=== PATIENT | male | born 1970 | race American Indian/Alaskan Native ===

== ENCOUNTER 2020-12-01 02:47 | Emergency (ER) | payer OTHER ==
[2020-12-01 02:57] VITALS: BP 130/93
[2020-12-01] MEDS ORDERED: predniSONE 20 MG TAB PO ONE (03:36)
--- NOTE | 2020-12-01 04:14 | Emergency Department Report ---
ED General Adult HPI - General Chief complaint: Adult Asthma Stated complaint: ASTHMA Source: patient Mode of arrival: Ambulatory Limitations: No Limitations - History of Present Illness Initial comments: Patient is a 50-year-old -[place] male with a history of sarcoidosis, prostate cancer s/p radiation therapy and in remission and asthma who presents to the ED with complaint of shortness of breath, persistent dry cough and wheezing for the last 1 hour.. Patient states that he was asleep when the heating system in the house was on and that he woke up with shortness of breath and wheezing constantly. Patient states that he used his Combivent inhaler at home and it helped resolve the shortness of breath. Patient states that he came to the ED for refill of his Combivent inhaler which ran out after the treatment prior to arrival in the ED. Patient also complains of bilateral inguinal intermittent itchy dry scaly rashes for the last 3 months worse in the last 2 days. Patient denies dizziness, syncope, fever, chills, chest pain, abdominal pain, testicular pain, dysuria, urinary frequency and urgency, nausea and vomiting, sore throat, nasal and sinus congestion or headache. MD Complaint: Cough, wheezing, asthma flare -: Sudden, hour(s) (1) Location: chest Radiation: non-radiation Severity scale (0 -10): 1 Quality: dull Consistency: now resolved Improves with: medication (combivent inhaler) Worsens with: cold therapy, other (heating in the house) Associated Symptoms: denies other symptoms, cough, rash (bilateral inguinal itchy rash), shortness of breath. denies: confusion, chest pain, diaphoresis, fever/chills, headaches, loss of appetite, malaise, nausea/vomiting, seizure, syncope, weakness, other Treatments Prior to Arrival: none - Related Data Previous Rx's Medication Instructions Recorded Last Taken Type Combivent Respimat 1 puff IH QID #1 12/01/20 Unknown Rx Prednisone [predniSONE 10 mg 10 mg PO .TAPER #1 tab.ds.pk 12/01/20 Unknown Rx (6-Day Pack, 21 Tabs)] Terbinafine (Nf) [LamiSIL] 1 tab PO QDAY #21 tablet 12/01/20 Unknown Rx Allergies Allergy/AdvReac Type Severity Reaction Status Date / Time No Known Allergies Allergy Unverified 12/01/20 03:02 ED Review of Systems ROS: Stated complaint: ASTHMA Other details as noted in HPI Constitutional: denies: chills, fever Eyes: denies: eye pain, eye discharge, vision change ENT: congestion. denies: ear pain, throat pain Respiratory: cough, shortness of breath, wheezing Cardiovascular: denies: chest pain, palpitations Endocrine: no symptoms reported Gastrointestinal: denies: abdominal pain, nausea, diarrhea Genitourinary: denies: urgency, dysuria Musculoskeletal: denies: back pain, joint swelling, arthralgia Skin: rash (Bilateral inguinal dry scaly itchy rashes). denies: lesions Neurological: denies: headache, weakness, paresthesias Psychiatric: denies: anxiety, depression Hematological/Lymphatic: denies: easy bleeding, easy bruising ED Past Medical Hx - Past Medical History Previous Medical History?: Yes Hx of Cancer: Yes (Prostate (In remission)) Hx Asthma: Yes Additional medical history: Sacoidosis - Surgical History Past Surgical History?: No - Social History Smoking Status: Never Smoker Substance Use Type: Marijuana - Medications Home Medications: Home Medications Medication Instructions Recorded Confirmed Last Taken Type Combivent Respimat 1 puff IH QID #1 12/01/20 Unknown Rx Prednisone [predniSONE 10 mg 10 mg PO .TAPER #1 tab.ds.pk 12/01/20 Unknown Rx (6-Day Pack, 21 Tabs)] Terbinafine (Nf) [LamiSIL] 1 tab PO QDAY #21 tablet 12/01/20 Unknown Rx ED Physical Exam - General Limitations: No Limitations General appearance: alert, in no apparent distress - Head Head exam: Present: atraumatic, normocephalic, normal inspection - Eye Eye exam: Present: normal appearance, PERRL, EOMI - ENT ENT exam: Present: normal exam, normal orophraynx, mucous membranes moist, TM's normal bilaterally, normal external ear exam - Neck Neck exam: Present: normal inspection, full ROM - Respiratory Respiratory exam: Present: normal lung sounds bilaterally. Absent: respiratory distress, wheezes, rales, stridor, chest wall tenderness, accessory muscle use, decreased breath sounds, prolonged expiratory - Cardiovascular Cardiovascular Exam: Present: regular rate, normal rhythm, normal heart sounds. Absent: systolic murmur, diastolic murmur, rubs, gallop - GI/Abdominal GI/Abdominal exam: Present: soft, normal bowel sounds. Absent: distended, tenderness, guarding, hyperactive bowel sounds, hypoactive bowel sounds, organomegaly - Extremities Exam Extremities exam: Present: normal inspection, full ROM, normal capillary refill - Back Exam Back exam: Present: normal inspection, full ROM. Absent: tenderness, CVA tenderness (R), CVA tenderness (L), muscle spasm, paraspinal tenderness, vertebral tenderness - Neurological Exam Neurological exam: Present: alert, oriented X3, CN II-XII intact, normal gait, reflexes normal - Psychiatric Psychiatric exam: Present: normal affect, normal mood - Skin Skin exam: Present: warm, dry, intact, normal color. Absent: rash ED Course Vital Signs 12/01/20 02:50 Temperature 98.1 F Pulse Rate 89 Respiratory 16 Rate Blood Pressure 130/93 O2 Sat by Pulse 97 Oximetry ED Medical Decision Making - Medical Decision Making This is a 50-year-old -[place] male with a history of sarcoidosis, prostate cancer s/p radiation therapy and in remission and asthma who presents to the ED with complaint of shortness of breath, persistent dry cough and wheezing for the last 1 hour.. Patient states that he was asleep when the heating system in the house was on and that he woke up with shortness of breath and wheezing constantly. Patient states that he used his Combivent inhaler at home and it helped resolve the shortness of breath. Patient states that he came to the ED for refill of his Combivent inhaler which ran out after the treatment prior to arrival in the ED. Patient also complains of bilateral inguinal intermittent itchy dry scaly rashes for the last 3 months worse in the last 2 days. In the ED, patient is alert and oriented x3 and is not in distress. Patient felt better prior to arrival in the ED but had apparently come to the ED for medication refill. Patient was therefore given a refill on his Combivent and also given a prescription for tinea crura's. Patient was advised to follow- up with his primary care physician in 5 to 7 days for reevaluation. Patient was advised to return to the ED immediately if symptoms get worse. - Differential Diagnosis Asthma flare; bronchitis; URI Critical care attestation.: If time is entered above; I have spent that time in minutes in the direct care of this critically ill patient, excluding procedure time. ED Disposition Clinical Impression: Acute asthmatic bronchitis, Tinea cruris, Itching with irritation Acute asthma exacerbation Qualifiers: Asthma severity: mild Asthma persistence: intermittent Qualified Code(s): J45.21 - Mild intermittent asthma with (acute) exacerbation Disposition: TO HOME OR SELFCARE Is pt being admited?: No Does the pt Need Aspirin: No Condition: Stable Instructions: Cough, Adult, [id number], Asthma, Adult, [id number], Acute Bronchitis (ED) Additional Instructions: Take medication with food, drink plenty of fluids and follow-up with your [facility] physician in 5 to 7 days for reevaluation. Return to the ED immediately if symptoms get worse. Prescriptions: Combivent Respimat 1 puff IH QID #1 Terbinafine (Nf) [LamiSIL] 1 tab PO QDAY #21 tablet Prednisone [predniSONE 10 mg (6-Day Pack, 21 Tabs)] 10 mg PO .TAPER #1 tab.ds.pk Referrals: MARIELA TELLO MD [Staff Physician] - 3-5 Days Time of Disposition: 04:19 Print Language: HONG KONGER
== END 2020-12-01 04:45 | disposition home or self-care (01) ==
LOC: ED 02:47
DX: J45.901 Unspecified asthma with (acute) exacerbation (principal); B35.6 Tinea cruris; L29.9 Pruritus, unspecified; F12.10 Cannabis abuse, uncomplicated; Z79.899 Other long term (current) drug therapy
CPT/HCPCS: 99282; J7512

== ENCOUNTER 2020-12-26 00:06 | Emergency (ER) | payer OTHER ==
--- NOTE | 2020-12-26 01:32 | Emergency Department Report ---
ED General Adult HPI - General Stated complaint: RX REFILL/INHALER PUI?: No Time Seen by Provider: 12/26/20 01:28 Source: patient Mode of arrival: Ambulatory Limitations: No Limitations - History of Present Illness Initial comments: CC: albuterol refill HPI: This is a 50 yo male with hx of asthma who desires refill of albuterol MDI. Receives care at [facility]. No current complaints. Has had intermittent shortness of breath cough wheezing. He only needs refill. He has been unable to get refill at pharmacy. Pharmacy unable to contact PCP. Severity scale (0 -10): 0 Improves with: none Worsens with: none Associated Symptoms: denies other symptoms - Related Data Previous Rx's Medication Instructions Recorded Last Taken Type Albuterol Mdi (or & Nicu Only) 2 puff IH QID PRN #8.5 gram 12/01/20 Unknown Rx [ProAir HFA Inhaler] Combivent Respimat 1 puff IH QID #1 12/01/20 Unknown Rx Ipratropium (Nf) [Atrovent] 2 puff IH Q6HR PRN #1 inha 12/01/20 Unknown Rx Prednisone [predniSONE 10 mg 10 mg PO .TAPER #1 tab.ds.pk 12/01/20 Unknown Rx (6-Day Pack, 21 Tabs)] Terbinafine (Nf) [LamiSIL] 1 tab PO QDAY #21 tablet 12/01/20 Unknown Rx Albuterol Mdi (or & Nicu Only) 2 puff IH QID PRN #8.5 gram 12/26/20 Unknown Rx [ProAir HFA Inhaler] Allergies Allergy/AdvReac Type Severity Reaction Status Date / Time No Known Allergies Allergy Unverified 12/01/20 03:02 ED Review of Systems ROS: Stated complaint: RX REFILL/INHALER Other details as noted in HPI Constitutional: denies: fever, malaise Respiratory: cough, shortness of breath, wheezing Cardiovascular: denies: chest pain ED Past Medical Hx - Past Medical History Previous Medical History?: Yes Hx Asthma: Yes Additional medical history: Sacoidosis - Social History Smoking Status: Never Smoker Substance Use Type: Marijuana - Medications Home Medications: Home Medications Medication Instructions Recorded Confirmed Last Taken Type Albuterol Mdi (or & Nicu Only) 2 puff IH QID PRN #8.5 gram 12/01/20 Unknown Rx [ProAir HFA Inhaler] Combivent Respimat 1 puff IH QID #1 12/01/20 Unknown Rx Ipratropium (Nf) [Atrovent] 2 puff IH Q6HR PRN #1 inha 12/01/20 Unknown Rx Prednisone [predniSONE 10 mg 10 mg PO .TAPER #1 tab.ds.pk 12/01/20 Unknown Rx (6-Day Pack, 21 Tabs)] Terbinafine (Nf) [LamiSIL] 1 tab PO QDAY #21 tablet 12/01/20 Unknown Rx Albuterol Mdi (or & Nicu Only) 2 puff IH QID PRN #8.5 gram 12/26/20 Unknown Rx [ProAir HFA Inhaler] ED Physical Exam - General Limitations: No Limitations General appearance: alert, in no apparent distress - Head Head exam: Present: atraumatic, normocephalic - Eye Eye exam: Present: normal appearance - ENT ENT exam: Present: mucous membranes moist - Neck Neck exam: Present: normal inspection, full ROM - Respiratory Respiratory exam: Present: normal lung sounds bilaterally. Absent: respiratory distress, wheezes, rales - Cardiovascular Cardiovascular Exam: Present: regular rate, normal rhythm, normal heart sounds. Absent: systolic murmur, diastolic murmur, rubs, gallop - GI/Abdominal GI/Abdominal exam: Present: soft, normal bowel sounds. Absent: distended, tenderness, guarding, rebound - Rectal Rectal exam: Present: deferred - Extremities Exam Extremities exam: Present: normal inspection - Back Exam Back exam: Present: normal inspection - Neurological Exam Neurological exam: Present: alert, oriented X3 - Psychiatric Psychiatric exam: Present: normal affect, normal mood - Skin Skin exam: Present: warm, dry, intact, normal color. Absent: rash ED Medical Decision Making - Medical Decision Making Medication refill: Albuterol MDI prescription written Critical care attestation.: If time is entered above; I have spent that time in minutes in the direct care of this critically ill patient, excluding procedure time. ED Disposition Clinical Impression: Medication refill, Asthma, Sarcoidosis Disposition: TO HOME OR SELFCARE Is pt being admited?: No Does the pt Need Aspirin: No Condition: Stable Instructions: Asthma (ED) Prescriptions: Albuterol Mdi (or & Nicu Only) [ProAir HFA Inhaler] 2 puff IH QID PRN #8.5 gram PRN Reason: Shortness Of Breath Referrals: MARIELA TELLO MD [Staff Physician] - 3-5 Days
[2020-12-26 08:07] VITALS: BP 143/90
== END 2020-12-26 02:00 | disposition home or self-care (01) ==
LOC: ED 00:06
DX: J45.909 Unspecified asthma, uncomplicated (principal); D86.9 Sarcoidosis, unspecified; F12.90 Cannabis use, unspecified, uncomplicated; Z76.0 Encounter for issue of repeat prescription; Z79.899 Other long term (current) drug therapy
CPT/HCPCS: 99282